=== PATIENT | male | born 1960 | race Hispanic/Latino ===

== ENCOUNTER 2016-12-19 18:40 | Emergency (ER) | payer MEDICARE ==
--- NOTE | 2016-12-19 20:00 | C.PDOC ---
History Of Present Illness Luis is a 56 y/o male with a PMHx of hypercholesterolemia, bipolar, and generalized anxiety disorder, who presents to the ED complaining of abdominal pain since July. He believes the pain is associated to a medication (Provigil) , which he was taking for anxiety and insomnia. States he was taken off of the medication, as well as Xanax, 2 months ago. Patient originally believed it was causing his abdominal pain. Now he complains that he is now in withdrawal, which is further contributing to his abdominal pain. Also complaining of leg swelling, fatigue, and palpitations. He has been evaluated by several different providers and all have been unwilling to prescribe the medication for him. PMD: Unknown Time Seen by Provider: 12/19/16 19:48 Chief Complaint (Nursing): Abdominal Pain History Per: Patient History/Exam Limitations: no limitations Onset/Duration Of Symptoms: Days (x 5 months) Current Symptoms Are (Timing): Still Present Past Medical History Reviewed: Historical Data, Nursing Documentation, Vital Signs Vital Signs: Last Vital Signs Temp 98.2 F 12/19/16 18:47 Pulse 69 12/19/16 18:47 Resp 18 12/19/16 18:47 BP 153/71 H 12/19/16 18:47 Pulse Ox 96 12/19/16 21:52 - Medical History PMH: Anxiety, Bipolar Disorder, COPD, Depression, Post Traumatic Stress Disorder , Sleep Apnea Surgical History: Tonsillectomy (1964) Family History: States: Unknown Family Hx - Social History Hx Alcohol Use: No Hx Substance Use: No Review Of Systems Except As Marked, All Systems Reviewed And Found Negative. Constitutional: Positive for: Other (Fatigue) Cardiovascular: Positive for: Edema Gastrointestinal: Positive for: Abdominal Pain Physical Exam - Physical Exam Appears: Well, Non-toxic, No Acute Distress Skin: Normal Color, Warm, Dry Head: Atraumatic, Normacephalic Eye(s): bilateral: Normal Inspection, PERRL, EOMI Nose: Normal Oral Mucosa: Moist Neck: Normal, Normal ROM Chest: Symmetrical Cardiovascular: Rhythm Regular, Edema (mild in ankles), Murmur (Diastolic murmur on the right second intercostal space) Respiratory: Normal Breath Sounds, No Accessory Muscle Use Gastrointestinal/Abdominal: Normal Exam, Soft, No Tenderness Back: Normal Inspection Extremity: Normal ROM, No Deformity Neurological/Psych: Normal Speech, Normal Cranial Nerves, Normal Motor, Normal Sensation Gait: Steady ED Course And Treatment - Laboratory Results Result Diagrams: 12/19/16 20:24 12/19/16 20:44 Lab Interpretation: Normal O2 Sat by Pulse Oximetry: 96 (RA) Pulse Ox Interpretation: Normal Progress Note: Time: 20:24. Initial Plan: Ordered labs and urine. Pending reevaluation and final disposition. Reevaluation Time: 23:52 Reassessment Condition: Improved (Patient remains comfortable and in no distress.) Disposition Counseled Patient/Family Regarding: Studies Performed, Diagnosis, Need For Followup - Disposition Referrals: [facility] [Outside] Disposition: HOME/ ROUTINE Disposition Time: 23:53 Condition: STABLE Instructions: Anxiety (ED) Forms: [employer] [facility] (Georgian) - Clinical Impression Clinical Impression: Anxiety and depression, Sleep disturbance, unspecified - Scribe Statement The provider has reviewed the documentation as recorded by the Scribrj Anaya All medical record entries made by the Scribe were at my direction and personally dictated by me. I have reviewed the chart and agree that the record accurately reflects my personal performance of the history, physical exam, medical decision making, and the department course for this patient. I have also personally directed, reviewed, and agree with the discharge instructions and disposition.
[2016-12-19 20:48] LABS: BASO # 0.1 K/uL (0.0-0.2); BASO % 0.9 % (0.0-2.0); EOS % 0.4 % (0.0-4.0); HEMATOCRIT 44.7 % (35.0-51.0); LYMPH # 1.9 K/uL (1.0-4.3); LYMPH % 23.5 % (20.0-40.0); MEAN CELL VOLUME 91.8 fL (80.0-94.0); MEAN CORPUSCULAR HEMOGLOBIN 31.7 pg (27.0-31.0); MEAN CORPUSCULAR HGB CONC 34.5 g/dL (33.0-37.0); MEAN PLATELET VOLUME 8.2 fL (7.2-11.7); MONO # 0.7 K/uL (0.0-0.8); MONO % 8.4 % (0.0-10.0); RED CELL DISTRIBUTION WIDTH 13.4 % (11.5-14.5); WHITE BLOOD COUNT 8.2 K/uL (4.8-10.8)
[2016-12-19 20:59] LABS: ALB/GLOB RATIO 1.4 (1.0-2.1); ALKALINE PHOSPHATASE 53 U/L (38-126); ALT/SGPT 54 U/L (21-72); AST/SGOT 37 U/L (17-59); BILIRUBIN,TOTAL 0.5 mg/dL (0.2-1.3); BLOOD UREA NITROGEN 9 mg/dL (9-20); CALCIUM 8.9 mg/dl (8.6-10.4); CARBON DIOXIDE 23 mmol/L (22-30); CHLORIDE 104 mmol/L (98-107); GFR AFRICAN-AMERICAN > 60; GLUCOSE,RANDOM 115 mg/dL (75-110); POTASSIUM 3.8 mmol/L (3.6-5.2); SODIUM 144 mmol/L (132-148); TOTAL PROTEIN 7.2 g/dL (6.3-8.3)
[2016-12-19 21:36] LABS: URINE BACTERIA RARE (<OCC); URINE BILIRUBIN NEGATIVE (NEGATIVE); URINE BLOOD NEGATIVE (NEGATIVE); URINE COLOR Yellow (YELLOW); URINE GLUCOSE (UA) NORMAL (Normal); URINE KETONE NEGATIVE (NEGATIVE); URINE LEUKOCYTE ESTERASE NEG Leu/uL (Negative); URINE PROTEIN NEGATIVE (NEGATIVE); URINE UROBILINOGEN NORMAL mg/dL (0.2-1.0); WBC URINE < 1 /hpf (0-5)
[2016-12-20 00:08] VITALS: BP 142/76; PULSE 73; RESP 16; TEMP 98; O2SAT 97
== END 2016-12-20 00:08 | disposition home or self-care (01) ==
LOC: C.ER 18:40
DX: F41.9 Anxiety disorder, unspecified (principal); F32.9 Major depressive disorder, single episode, unspecified; G47.9 Sleep disorder, unspecified

== ENCOUNTER 2017-06-08 18:06 | Emergency (ER) | payer MEDICARE ==
--- NOTE | 2017-06-08 20:03 | C.PDOC ---
History Of Present Illness 56 year old male with psychiatric history currently on Depakote and Buspar presents to the ED complaining of difficulty sleeping x1 year. Patient also states that he was once on Provigil, Remeron and Xanax but has been told to stop those medications. Patient is preoccupied with thoughts of being on those medications and his medical conditions and states that if he continues to have difficulty sleeping then his lifespan is only going to last 3 years. No suicidal or homicidal ideation. Denies hearing voices. Time Seen by Provider: 06/08/17 19:27 Chief Complaint (Nursing): Psychiatric Evaluation History Per: Patient History/Exam Limitations: no limitations Onset/Duration Of Symptoms: Other (1 Year ) Current Symptoms Are (Timing): Still Present Suicide/Self Injury Attempted (Context): None Modifying Factor(s): None Associated Symptoms: Anxiety. denies: Suicidal Thoughts, Suicidal Plan Involuntary Hold By: None Recent travel outside of the [place]: No Past Medical History Reviewed: Historical Data, Nursing Documentation, Vital Signs Vital Signs: Last Vital Signs Temp 97.9 F 06/08/17 18:15 Pulse 78 06/08/17 18:15 Resp 20 06/08/17 18:15 BP 133/78 06/08/17 18:15 Pulse Ox 96 06/08/17 22:07 - Medical History PMH: Anxiety, Bipolar Disorder, COPD, Depression, Post Traumatic Stress Disorder , Sleep Apnea Surgical History: Tonsillectomy (1964) Family History: States: Unknown Family Hx - Social History Hx Alcohol Use: No Hx Substance Use: No Review Of Systems Except As Marked, All Systems Reviewed And Found Negative. Psych: Positive for: Anxiety, Other (Difficulty sleeping. Denies homicidal ideation or auditory hallucinations ). Negative for: Suicidal ideation Physical Exam - Physical Exam Appears: Non-toxic, No Acute Distress Skin: Normal Color, Warm, Dry Head: Atraumatic, Normacephalic Eye(s): bilateral: Normal Inspection, PERRL, EOMI Oral Mucosa: Moist Throat: Normal Neck: Normal, Normal ROM, Supple Chest: Symmetrical Cardiovascular: Rhythm Regular (Rate Regular ) Respiratory: Normal Breath Sounds, No Rales, No Rhonchi, No Wheezing Gastrointestinal/Abdominal: Soft, No Tenderness Back: Normal Inspection Extremity: Normal ROM, No Deformity Extremity: Bilateral: Atraumatic Neurological/Psych: Oriented x3, Normal Speech, Other (Bizarre affect) ED Course And Treatment - Laboratory Results Result Diagrams: 06/08/17 20:08 06/08/17 20:08 O2 Sat by Pulse Oximetry: 96 Medical Decision Making Medical Decision Making: Impression: insomnia Plan: psych consult Seen by psychiatry. Cleared for discharge for follow up with Dr. Guadalupe. Diagnosis: Insomnia Disposition Counseled Patient/Family Regarding: Studies Performed, Diagnosis, Need For Followup, Rx Given - Disposition Referrals: Marylin Guadalupe MD [Staff Provider] - Disposition: HOME/ ROUTINE Disposition Time: 22:04 Condition: STABLE Additional Instructions: follow up with Dr. Guadalupe in 2 days call to make an appointment take medication as prescribed return to ER if symptoms worsens or progress Prescriptions: Hydroxyzine Pamoate [Vistaril] 25 mg PO QPM PRN #8 capsule PRN Reason: Other Instructions: Insomnia, Tips for Getting Better Sleep Forms: [facility] (Vietnamese), General Discharge Instructions - Clinical Impression Clinical Impression: Insomnia - Scribe Statement The provider has reviewed the documentation as recorded by the Martineibrj Valencia Provider Attestation: All medical record entries made by the Scribe were at my direction and personally dictated by me. I have reviewed the chart and agree that the record accurately reflects my personal performance of the history, physical exam, medical decision making, and the department course for this patient. I have also personally directed, reviewed, and agree with the discharge instructions and disposition.
[2017-06-08 20:14] LABS: BASO # 0.1 K/uL (0.0-0.2); BASO % 1.3 % (0.0-2.0); EOS # 0.1 K/uL (0.0-0.7); EOS % 1.3 % (0.0-4.0); HEMOGLOBIN 15.6 g/dL (12.0-18.0); LYMPH % 28.5 % (20.0-40.0); MEAN CELL VOLUME 90.1 fL (80.0-94.0); MEAN CORPUSCULAR HGB CONC 35.5 g/dL (33.0-37.0); MEAN PLATELET VOLUME 8.3 fL (7.2-11.7); MONO # 1.1 K/uL (0.0-0.8); MONO % 10.2 % (0.0-10.0); NEUT # 6.2 K/uL (1.8-7.0); NEUT % 58.7 % (50.0-75.0); RBC 4.86 Mil/uL (4.40-5.90); RED CELL DISTRIBUTION WIDTH 13.1 % (11.5-14.5); WHITE BLOOD COUNT 10.6 K/uL (4.8-10.8)
[2017-06-08 20:24] LABS: ALB/GLOB RATIO 1.3 (1.0-2.1); ALBUMIN 4.1 g/dL (3.5-5.0); ALT/SGPT 37 U/L (21-72); AST/SGOT 24 U/L (17-59); BLOOD UREA NITROGEN 15 mg/dL (9-20); CALCIUM 8.9 mg/dl (8.6-10.4); GFR AFRICAN-AMERICAN > 60; GFR NON-AFRICAN AMERICAN > 60
[2017-06-08 20:52] LABS: URINE BILIRUBIN NEGATIVE (NEGATIVE); URINE BLOOD NEGATIVE (NEGATIVE); URINE CLARITY Clear (Clear); URINE COLOR Yellow (YELLOW); URINE GLUCOSE (UA) NORMAL (Normal); URINE LEUKOCYTE ESTERASE NEG Leu/uL (Negative); URINE NITRATE NEGATIVE (NEGATIVE); URINE PROTEIN NEGATIVE (NEGATIVE); URINE UROBILINOGEN NORMAL mg/dL (0.2-1.0)
[2017-06-08 21:02] LABS: OPIATES, UR NEGATIVE (NEGATIVE); PHENCYCLIDINE, UR NEGATIVE (NEGATIVE)
[2017-06-08 21:03] LABS: BENZODIAZEPINES, UR POSITIVE (NEGATIVE)
[2017-06-08 21:19] LABS: BARBITURATES, UR NEGATIVE (NEGATIVE)
[2017-06-08] MEDS ORDERED: Potassium Chloride 20 mEq/15 ml LIQ UD PO STA (21:39)
[2017-06-08 23:14] VITALS: BP 129/87; PULSE 67; RESP 18; TEMP 97.5; O2SAT 98
== END 2017-06-08 23:41 | disposition home or self-care (01) ==
LOC: C.ER 18:06
DX: G47.00 Insomnia, unspecified (principal)
CPT/HCPCS: 36415; 80053; 80164; 81001; 84443; 85025; 99284; G0480

== ENCOUNTER 2018-05-05 13:56 | Emergency (ER) | payer SELFPAY ==
--- NOTE | 2018-05-05 14:42 | C.PDOC ---
History Of Present Illness Patient is a 57 year old male, with a PMHx of bipolar disorder and seizures, who presents to the ED c/o being unable to sleep at night and having difficulty staying awake during the day for the past year. Patient is taking Depakote, Provigil, and Xanax. He was seen in the hospital one year ago for similar symptoms and is requesting refill of his medications. Of note, patient was seen previously for paranoid schizophrenia. He denies any current SI/HI, hallucinations, paranoia, CP, SOB, or other medical complaints. Time Seen by Provider: 05/05/18 14:20 Chief Complaint (Nursing): Medical Clearance History Per: Patient History/Exam Limitations: no limitations Onset/Duration Of Symptoms: Other (one year ) Current Symptoms Are (Timing): Still Present Recent travel outside of the [place]: No Additional History Per: Patient Past Medical History Reviewed: Historical Data, Nursing Documentation, Vital Signs Vital Signs: Last Vital Signs Temp 97.8 F 05/05/18 14:01 Pulse 71 05/05/18 14:01 Resp 16 05/05/18 14:01 BP 166/90 H 05/05/18 14:01 Pulse Ox 98 05/05/18 14:01 - Medical History PMH: Anxiety, Bipolar Disorder, COPD, Depression, HTN (pt reports), Post Traum atic Stress Disorder, Sleep Apnea Surgical History: Tonsillectomy (1964) Family History: States: Unknown Family Hx - Social History Hx Alcohol Use: No Hx Substance Use: No Review Of Systems Cardiovascular: Negative for: Chest Pain Respiratory: Negative for: Shortness of Breath Psych: Negative for: Suicidal ideation, Other (homicidal ideation, hallucinations, paranoia) Physical Exam - Physical Exam Appears: Non-toxic, No Acute Distress Skin: Normal Color, Warm, Dry Head: Atraumatic, Normacephalic Oral Mucosa: Moist Neck: Normal ROM, Supple Chest: Symmetrical, No Deformity Cardiovascular: Rhythm Regular, No Murmur Respiratory: Normal Breath Sounds, No Rales, No Rhonchi, No Wheezing Gastrointestinal/Abdominal: Soft, No Tenderness, No Guarding, No Rebound Extremity: Normal ROM Neurological/Psych: Oriented x3 ED Course And Treatment O2 Sat by Pulse Oximetry: 98 (on RA) Pulse Ox Interpretation: Normal Medical Decision Making Medical Decision Making: Was offered to speak to piggery worker, but patient declined. no active si hi Patient states that he will follow up with his own neurologist. Disposition - Disposition Disposition: HOSPITALIZED Disposition Time: 16:00 Condition: STABLE Additional Instructions: please see your psychiatrist. return to er with worsening. Instructions: Insomnia, Tips for Getting Better Sleep Forms: [employer] [facility] (Thai) - Clinical Impression Clinical Impression: Medical assessment, Insomnia - Scribe Statement The provider has reviewed the documentation as recorded by the Xiomara Dorman All medical record entries made by the Martineibrj were at my direction and personally dictated by me. I have reviewed the chart and agree that the record accurately reflects my personal performance of the history, physical exam, medical decision making, and the department course for this patient. I have also personally directed, reviewed, and agree with the discharge instructions and disposition.
[2018-05-05 15:16] VITALS: BP 140/88; PULSE 78; RESP 18; TEMP 98.1
[2018-05-05 16:00] VITALS: O2SAT 98
== END 2018-05-05 15:16 | disposition short-term general hospital (02) ==
LOC: C.ER 13:56
DX: G47.00 Insomnia, unspecified (principal)

== ENCOUNTER 2018-09-12 05:43 | Emergency (ER) | payer MEDICARE, MEDICAID ==
[2018-09-12 05:57] VITALS: RESP 18; TEMP 97.6
--- NOTE | 2018-09-12 06:16 | C.PDOC ---
History Of Present Illness 57 year old male with PMH seizures, anxiety, bipolar, PTSD presents to ED for refill of his Depakote. Reports he has been on 1000mg "for thirty years" but his new PMD (Dr. Woods) lowered his dose to 500mg and he is going to run out in 2 days. Patient denies SI, HI, fever, chills, chest pain, SOB. Time Seen by Provider: 09/12/18 05:59 Chief Complaint (Nursing): Med Refill History Per: Patient History/Exam Limitations: no limitations Severity: None Past Medical History Vital Signs: Last Vital Signs Temp 97.6 F 09/12/18 05:53 Pulse 79 09/12/18 05:53 Resp 18 09/12/18 05:53 BP 130/80 09/12/18 05:53 Pulse Ox 95 09/12/18 05:53 - Medical History PMH: Anxiety, Bipolar Disorder, COPD, Depression, HTN (pt reports), Post Traumatic Stress Disorder, Sleep Apnea Surgical History: Tonsillectomy (1964) Family History: States: Unknown Family Hx - Social History Hx Alcohol Use: No Hx Substance Use: No - Immunization History Hx Tetanus Toxoid Vaccination: No Hx Influenza Vaccination: No Hx Pneumococcal Vaccination: No Review Of Systems Except As Marked, All Systems Reviewed And Found Negative. Constitutional: Negative for: Fever, Chills Cardiovascular: Negative for: Chest Pain Respiratory: Negative for: Shortness of Breath Neurological: Negative for: Headache Physical Exam - Physical Exam Appears: Well, Non-toxic, No Acute Distress Skin: Normal Color, Warm, Dry Head: Atraumatic, Normacephalic Eye(s): bilateral: Normal Inspection Oral Mucosa: Moist Neck: Supple Chest: Symmetrical Cardiovascular: Rhythm Regular Respiratory: Normal Breath Sounds Neurological/Psych: Oriented x3, Normal Speech ED Course And Treatment O2 Sat by Pulse Oximetry: 95 Medical Decision Making Medical Decision Making: Psych referral Disposition - Disposition Disposition Time: 06:48 Condition: GOOD Forms: [facility] (Setswana) - Clinical Impression Clinical Impression: Seizure prophylaxis, Anxiety Physician Patient Turnover Patient Signed Over To: Dali Cantu Handoff Comments: pending psych
[2018-09-12 07:55] VITALS: BP 120/70; PULSE 80; O2SAT 98
== END 2018-09-12 07:59 | disposition home or self-care (01) ==
LOC: C.ER 05:43
DX: R56.9 Unspecified convulsions (principal); F41.9 Anxiety disorder, unspecified